=== PATIENT | female | born 1990 ===

== ENCOUNTER 2018-02-21 09:32 | Emergency (ER) | payer OTHER ==
[2018-02-21 09:32] VITALS: BMI 36.6
[2018-02-21] MEDS ORDERED: Sodium Chloride 0.9% 1,000 ML IV ONE (10:03)
--- NOTE | 2018-02-21 10:06 | C.PDOC ---
History Of Present Illness 27 yo female w/o significant PMHx come in for evaluation of epigastric pain gradually developed since today AM associated with nausea, mild headache, dizziness. Otherwise, pt denies fever, chills, severe headache, vertigo, earache, drooling, neck pain, CP, SOB, dyspnea, diaphoresis, palpitation, vomiting, diarrhea, UTI sx. Ambulate to Ed for evaluation, not in any apparent distress. Time Seen by Provider: 02/21/18 09:48 Chief Complaint (Nursing): Abdominal Pain History Per: Patient Past Medical History Reviewed: Historical Data, Nursing Documentation, Vital Signs Vital Signs: Last Vital Signs Temp 97.3 F L 02/21/18 09:44 Pulse 72 02/21/18 09:44 Resp 18 02/21/18 09:44 BP 107/69 02/21/18 09:44 Pulse Ox 99 02/21/18 09:44 - Medical History PMH: No Chronic Diseases Surgical History: No Surg Hx Family History: States: Unknown Family Hx - Social History Hx Tobacco Use: No Hx Alcohol Use: No Hx Substance Use: No - Immunization History Hx Tetanus Toxoid Vaccination: No Hx Influenza Vaccination: No Hx Pneumococcal Vaccination: No Review Of Systems Except As Marked, All Systems Reviewed And Found Negative. Constitutional: Negative for: Fever, Chills Eyes: Negative for: Vision Change ENT: Negative for: Ear Discharge, Nose Discharge, Throat Pain, Throat Swelling Cardiovascular: Negative for: Chest Pain, Palpitations, Edema, Light Headedness Respiratory: Negative for: Cough, Shortness of Breath, Wheezing Gastrointestinal: Positive for: Nausea, Abdominal Pain. Negative for: Vomiting, Diarrhea, Melena, Hematochezia, Hematemesis Genitourinary: Negative for: Dysuria, Frequency Musculoskeletal: Negative for: Neck Pain, Back Pain Neurological: Positive for: Headache. Negative for: Altered Mental Status, Di zziness Physical Exam - Physical Exam Appears: Well, Non-toxic, No Acute Distress Skin: Normal Color, Warm, Dry, No Rash Head: Normacephalic Eye(s): bilateral: PERRL Nose: No Flaring, Discharge Throat: No Erythema, No Drooling Neck: Trachea Midline, Supple Cardiovascular: Rhythm Regular, No Murmur, No JVD Respiratory: No Decreased Breath Sounds, No Accessory Muscle Use, No Stridor, No Wheezing Gastrointestinal/Abdominal: Soft, Tenderness (mild epigsatric), No Distention, No Guarding, No Rebound Back: No CVA Tenderness Extremity: Normal ROM, No Deformity, No Swelling Neurological/Psych: Oriented x3, Normal Speech ED Course And Treatment - Laboratory Results Result Diagrams: 02/21/18 10:19 02/21/18 10:19 Lab Interpretation: No Acute Changes Urine POC: Negative O2 Sat by Pulse Oximetry: 99 Pulse Ox Interpretation: Normal Progress Note: Pt was OBS in ED for 2 hours and reports mod improvement in sx. Pt sts, " I dont have stomach pain anymore". On re-eval, pt is afebrile, hemodynamicaly stable. Non-toxic. Tolerate Po well in ED. AMbulatory with stable gait. PulseOx 99% RA. Neck: supple, (-) JVD, (-) carotid bruits B/L. ENT: no acute finings. Lungs: CTA B/L, BS equal B/L. CVS: (+)S1S2, reg. Abd:benign, (-) guarding, (-) rebound, (-) localized tenderness. Neuorlogicaly intact. Blood work review and appears without acute abnoramlities. UA, preg (- ). Pt has clinical ifnidngs c/w epigastric pain, vertigo. Pt advised. re.f to f/u with PMD in 2-3 days for re-eval. return if any worsening or new changes. Disposition Counseled Patient/Family Regarding: Studies Performed, Diagnosis, Need For Followup, Rx Given - Disposition Referrals: [facility] [Outside] Disposition: HOME/ ROUTINE Disposition Time: 12:01 Condition: STABLE Additional Instructions: Encourage fluids take medication as prescribed Follow up with PMD in 2-3 days for re-evaluation. return to ED if any worsening or new changes. Prescriptions: Meclizine [Antivert] 12.5 mg PO BID #7 tab Instructions: Vertigo (a Type of Dizziness) (DC) Forms: [employer] (Divehi), Work Excuse Print Language: LAO - Clinical Impression Clinical Impression: Vertigo
[2018-02-21] MEDS ORDERED: Sodium Chloride 0.9% 1,000 ML ONE (10:13)
[2018-02-21 10:22] LABS: BASO % 0.4 % (0.0-2.0); EOS % 0.4 % (0.0-4.0); HEMOGLOBIN 10.9 g/dL (11.0-16.0); LYMPH # 2.2 K/uL (1.0-4.3); LYMPH % 18.8 % (20.0-40.0); MEAN CELL VOLUME 71.6 fL (81.0-99.0); MEAN CORPUSCULAR HEMOGLOBIN 22.9 pg (27.0-31.0); MEAN PLATELET VOLUME 8.1 fL (7.2-11.7); MONO # 0.7 K/uL (0.0-0.8); MONO % 6.3 % (0.0-10.0); NEUT # 8.6 K/uL (1.8-7.0); NEUT % 74.1 % (50.0-75.0); RBC 4.74 Mil/uL (3.80-5.20); RED CELL DISTRIBUTION WIDTH 16.8 % (11.5-14.5); WHITE BLOOD COUNT 11.6 K/uL (4.8-10.8)
[2018-02-21 10:36] LABS: HCG,QUALITATIVE URINE NEGATIVE (NEGATIVE)
[2018-02-21 10:49] LABS: SQUAMOUS EPITHIAL 3 /hpf (0-5); URINE BILIRUBIN NEGATIVE (NEGATIVE); URINE BLOOD NEGATIVE (NEGATIVE); URINE CLARITY Clear (Clear); URINE COLOR Yellow (YELLOW); URINE GLUCOSE (UA) NORMAL (Normal); URINE LEUKOCYTE ESTERASE NEG Leu/uL (Negative); URINE PROTEIN NEGATIVE (NEGATIVE); URINE UROBILINOGEN NORMAL mg/dL (0.2-1.0)
[2018-02-21 11:00] LABS: ALB/GLOB RATIO 1.1 (1.0-2.1); ALBUMIN 3.8 g/dL (3.5-5.0); ALT/SGPT 28 U/L (9-52); AST/SGOT 21 U/L (14-36); BLOOD UREA NITROGEN 10 mg/dL (7-17); CALCIUM 8.7 mg/dl (8.6-10.4); GFR NON-AFRICAN AMERICAN > 60
[2018-02-21 13:30] VITALS: BP 103/69; PULSE 69; RESP 16; TEMP 98.1
[2018-02-21 17:50] VITALS: O2SAT 99
== END 2018-02-21 13:30 | disposition home or self-care (01) ==
LOC: C.ER 09:32
DX: R10.13 Epigastric pain (principal); R42 Dizziness and giddiness
CPT/HCPCS: 80053; 81001; 84703; 85025; 87086; 96361; 96374; 96375; 99284; J1885; J2405; J7030